=== PATIENT | female | born 1980 | race Caucasian/White ===

== ENCOUNTER → 2020-09-01 | Outpatient (CLI) | payer OTHER ==
--- NOTE | 2020-09-01 10:19 | Diagnostic Imaging Report ---
TECHNIQUE: Magnetic resonance imaging of the RIGHT ANKLE was performed WITHOUT injected contrast. COMPARISON: None available. HISTORY: Right ankle pain FINDINGS: LIGAMENTS: Medial Complex: Scarring of the deep fibers. No acute tear. Lateral Complex: Tibiofibular ligaments intact. Scarring and attenuation of the anterior talofibular and calcaneofibular ligaments. No acute tear. TENDONS: Medial: Posterior tibial and flexor tendons intact. Lateral: Peroneal tendons intact. Anterior: Anterior tibial and extensor tendons intact. Achilles: Achilles tendon intact. BONES: No focal or infiltrative bone marrow replacing abnormality. No acute fracture or osteonecrosis. JOINTS: Cartilage: Partial-thickness cartilage loss of the ankle with osteophyte formation. Other: Os trigonum. SOFT TISSUES: Sinus Tarsi is clear. Tarsal tunnel is clear. IMPRESSION: Mild ankle degenerative arthrosis. Scarring of the deltoid and lateral ankle ligaments. Signed by: Dr. Fahad Mcnally M.D. on 09/01/2020 10:16 AM
== END ==
LOC: MRI 08:37
PROVIDERS: ATTEND Family Medicine
DX: M65.9 Synovitis and tenosynovitis, unspecified (principal); M67.89 Other specified disorders of synovium and tendon, multiple sites; M67.49 Ganglion, multiple sites
CPT/HCPCS: 81025